=== PATIENT | male | born 1965 | race American Indian/Alaskan Native ===

== ENCOUNTER 2022-08-19 07:22 | Day surgery (SDC) | payer MEDICARE ==
[2022-08-19] MEDS ORDERED: ASPIRIN EC 325 MG TAB PO NR (07:44)
[2022-08-19] MEDS ORDERED: SODIUM CHLORIDE 0.9% 500 ML 500 ML IV SCH (08:00)
[2022-08-19 09:07] LABS: Basophils % (Auto) 0.6 % (0.0-1.8); Eosinophils # (Auto) 0.3 K/mm3 (0.0-0.4); Eosinophils % (Auto) 6.9 % (0.0-4.3); Hemoglobin 11.2 gm/dl (11.8-15.2); INR 1.09 (0.87-1.13); Lymphocytes # (Auto) 0.8 K/mm3 (1.2-5.4); Lymphocytes % (Auto) 20.8 % (13.4-35.0); Mean Corpuscular HGB Conc 32 % (32-34); Mean Corpuscular Volume 90 fl (84-94); Monocytes # (Auto) 0.6 K/mm3 (0.0-0.8); Monocytes % (Auto) 14.3 % (0.0-7.3); Partial Thromboplastin Time 35.9 Sec. (24.2-36.6); Platelet Count 150 K/mm3 (140-440); Red Blood Count 3.85 M/mm3 (3.65-5.03); Red Cell Distribution Width 15.9 % (13.2-15.2)
[2022-08-19 09:10] LABS: Hematocrit 35.1 % (35.5-45.6)
[2022-08-19] MEDS ORDERED: HEPARIN/NS 5000 UNIT/500ML 1,000 ML IR ONE (09:35)
[2022-08-19] MEDS ORDERED: fentaNYL 100 MCG/2 ML INJ ONE (09:40)
[2022-08-19] MEDS: LIDOCAINE (2%) 20 MG/1 ML VIAL 20 ML MDV INFILTRATI ONE ×3 (09:41→09:48)
[2022-08-19] MEDS: MIDAZOLAM 2 MG/2 ML INJ ONE ×2 (09:41→09:46)
[2022-08-19 09:45] LABS: Calcium 8.8 mg/dL (8.4-10.2)
--- NOTE | 2022-08-19 10:39 | Discharge Summary ---
Short Stay Discharge Plan Activity: advance as tolerated Weight Bearing Status: Partial Weight Bearing Diet: low fat, low cholesterol, low salt, diabetic Wound: keep clean and dry Special Instructions: smoking cessation Follow up with: JUDY GARCIA MD [Primary Care Provider] - 7 Days AVIVA DO MD [Staff Physician] - 7 Days
--- NOTE | 2022-08-19 10:41 | Cardiac Catherization Report ---
DATE OF SERVICE: 08/19/2022 CATH REPORT INDICATIONS: Abnormal nuclear cardiac stress imaging tests. PROCEDURE: The patient was brought to the lab in the fasting state and after consents were obtained, the patient was placed on the table. The right groin area was prepped and draped. The patient was given 2 mg of Versed for sedation and local anesthesia was achieved using Xylocaine infiltration in the area. The right femoral artery was then engaged using an 18-gauge needle and using a guidewire 6-[place] and through this the sheath was then introduced into the femoral artery. On the fluoroscopic guidance and a J-tube guidewire, a 6-[place] 4 catheter was then introduced and then the left coronary artery was then engaged. Standard views were obtained of the left coronary artery. Catheter was then removed and a right 6-[place] catheter was then introduced and the right coronary artery was engaged and imaging in standard view. The right catheter was then removed and the pigtail catheter was then introduced into the left ventricular cavity. After pressures were obtained, a hand injection was done to image the left ventricle and assess function. ANGIOGRAPHY: * The left ventricle size appears to be within normal limits with normal global left ventricular systolic function, visually assessed LV ejection fraction of approximately 50%. * Left main coronary artery is within normal limits. * The left anterior descending artery shows mild ectatic dilation in the proximal segment with minimal luminal irregularities. No significant stenosis. * The ramus intermedius artery shows minimal luminal irregularities. Otherwise, no significant stenosis. * This left circumflex artery and obtuse marginal branches showed minimal luminal irregularities, otherwise no significant stenosis. * Right coronary artery is dominant and the right coronary artery shows minimal luminal irregularities. No significant stenosis. CONCLUSIONS: * Systemic arterial hypertension. * Diffuse minimal luminal irregularities. No obstructive coronary artery stenosis. * Normal left ventricular size and global systolic function. RECOMMENDATION: Recommend medical therapy and risk factor modification. TID: [id number] RECEIPT: [id number] PAE/HUS
[2022-08-19] MEDS ORDERED: SODIUM CHLORIDE 0.9% 1000 ML 1,000 ML IV SCH (10:45)
[2022-08-19] MEDS ORDERED: traMADol 50 MG TAB PO PRN (11:00)
[2022-08-19 15:51] VITALS: BP 149/76
--- NOTE | 2022-08-19 17:52 | Electrocardiograph Report ---
[facility] Test Date: 2022-08-19 Test Time: 08:50:28 Pat Name: JEREMIAH RUBIO Department: Room: Gender: M Office Assistant Receptionist: YUAN : 1965 Requested By: AVIVA DO Order Number: [id number] Reading MD: Yvan An Measurements Intervals [place] Rate: 61 P: 47 NC: 154 QRS: 38 QRSD: 88 T: -69 QT: 455 QTc: 459 Interpretive Statements Sinus rhythm Probable left atrial enlargement Left ventricle hypertrophy with repolarization abnormalities of LVH No previous ECG available for comparison Electronically Signed On 08-19-2022 17:52:13 EDT by Yvan An
== END 2022-08-19 07:23 | disposition home or self-care (01) ==
LOC: CATHLABREC 07:22
PROVIDERS: ATTEND Internal Medicine Cardiovascular Disease
DX: R94.30 Abnormal result of cardiovascular function study, unspecified (principal); I10 Essential (primary) hypertension; G43.909 Migraine, unspecified, not intractable, without status migrainosus; E78.00 Pure hypercholesterolemia, unspecified; M19.90 Unspecified osteoarthritis, unspecified site; E11.9 Type 2 diabetes mellitus without complications; Z79.899 Other long term (current) drug therapy; Z79.4 Long term (current) use of insulin; Z98.890 Other specified postprocedural states; Z98.49 Cataract extraction status, unspecified eye; Z72.89 Other problems related to lifestyle
CPT/HCPCS: 80048; 82962; 85025; 85610; 85730; 93005; 93458; C1894; J1644; J2250; J3010; J3490; J7040; 36415; Q9967